=== PATIENT | female | born 1965 | race Caucasian/White ===

== ENCOUNTER 2016-09-18 05:38 | Emergency (ER) | payer BC ==
[~2016-09-18] VITALS: Ht 154.9 cm; Wt 73.2 kg
[2016-09-18 06:06] LABS: HEMATOCRIT 40.5 % (36.0-46.0); MCHC 34.6 G/DL (30.0-36.0); MCV 89.6 FL (83-99); MEAN PLAT.VOLUME 10.2 uM^3 (9.5-12.4); PLATELET COUNT 193 K/uL (156-360); RBC DIS.WIDTH-CV 12.9 % (11.8-14.6); RBC DIS.WIDTH-SD 41.5 % (39-53); RED BLOOD COUNT 4.52 M/uL (3.80-5.20); WHITE BLOOD COUNT 12.1 K/uL (4.1-10.2)
[2016-09-18 06:16] LABS: CHLORIDE 104 mEq/L (99-109); POTASSIUM 3.6 mEq/L (3.7-5.4); SODIUM 141 mEq/L (136-147)
[2016-09-18 06:18] LABS: GLUCOSE 125 mg/dL (70-99)
[2016-09-18 06:19] LABS: ANION GAP 14 MEQ/L (2-14)
[2016-09-18 06:23] LABS: UREA NITROGEN (BUN) 25 mg/dL (9-23)
[2016-09-18 06:25] LABS: GFR ESTIMATE (CALCULATED) > 59 mL/min/
[2016-09-18 06:42] LABS: ADD MIUA? NO; BILIRUBIN NEGATIVE; BLOOD NEGATIVE; COLOR YELLOW ((YELLOW)); GLUCOSE (STRIP) NEGATIVE; KETONES NEGATIVE; LEUKOCYTES NEGATIVE; NITRITE NEGATIVE; PROTEIN (STRIP) NEGATIVE; SPECIFIC GRAVITY 1.024 (1.000-1.030); UCUL ADDED? NO
[2016-09-18] MEDS ORDERED: TYLENOL WITH C1 EACH PO (07:07)
[2016-09-18 07:19] VITALS: BP 123/57
== END 2016-09-18 07:28 | disposition home or self-care (01) ==
LOC: EME 05:38 → EDBD 05:38 → EME 07:28
PROVIDERS: Emergency Medicine
DX: R10.9 Unspecified abdominal pain (principal); R11.0 Nausea; R42 Dizziness and giddiness; Z87.891 Personal history of nicotine dependence
CPT/HCPCS: 74176; 80048; 81003; 85027; 99281; 99285; J2270; J7030